=== PATIENT | male | born 1965 | race Caucasian/White ===

== ENCOUNTER 2018-03-21 09:09 | Day surgery (SDC) | payer OTHER ==
[~2018-03-21] VITALS: Ht 175.3 cm; Wt 99.3 kg
[~2018-03-21 09:09] MED LIST: ASPI325 PO; FISH OIL 1,001000 MG PO; LEVSOD100 PO; Lotrel 10-40 M1 EACH PO; Multivitamin1 EAC2 PO
== END 2018-03-21 22:37 | disposition home or self-care (01) ==
LOC: ORSCMMR 09:09 → ORD 10:30 → ORSCMMR 10:30
PROVIDERS: Internal Medicine Gastroenterology
PROC: 0DJD8ZZ Inspection of Lower Intestinal Tract, Via Natural or Artificial Opening Endoscopic (ICD-10-PCS; principal; 2018-03-21 10:30)
DX: Z12.11 Encounter for screening for malignant neoplasm of colon (principal); I10 Essential (primary) hypertension; E03.9 Hypothyroidism, unspecified; Z79.82 Long term (current) use of aspirin; Z79.899 Other long term (current) drug therapy
CPT/HCPCS: J7120

== ENCOUNTER 2020-04-17 05:53 | Day surgery (SDC) | payer OTHER ==
[~2020-04-17] VITALS: Ht 172.7 cm; Wt 99.0 kg
[~2020-04-17 05:53] MED LIST changes: +HYDCHL25 PO; +METO50ER PO; +TAMS.4ER PO
--- NOTE | 2020-04-17 08:20 | NUR ---
PT RETURNED TO RECOVERY ROOM IN [facility]. RIGHT RADIAL TR BAND WITH WRIST BOARD SOFT NON-TENDER WITH NO HEMATOMA, NO BLEEDING. PT DENIES CHEST PAIN. CALL LIGHT IN REACH.
--- NOTE | 2020-04-17 10:36 | NUR ---
8 CC REMOVED OVER 10 MIN FROM NOW DEFLATED RIGHT TR BAND; NO HEMATOMA, SOFT NON-TENDER AND NO PULSATILE BLEEDING. DISCHBANNER INSTRCTIONS REVIEWED ALL QUESTIONS ANSWERED.
--- NOTE | 2020-04-17 10:44 | NUR ---
NO CHANGES TO DEFLATED RIGHT TR BAND SITE.
--- NOTE | 2020-04-17 11:27 | NUR ---
DEFLATED RIGHT TR BAND REMOVED AND POLYMEM PLACED OVER SITE. RIGHT WRIST BOARD IN PLACE. 20 G IV DISCONTINUED FROM LEFT AC WITH INTACT CANNULA.
== END 2020-04-17 11:35 | disposition home or self-care (01) ==
LOC: MHTC 05:53
PROC: B201YZZ Plain Radiography of Multiple Coronary Arteries using Other Contrast (ICD-10-PCS; principal; 2020-04-17)
PROC: 4A023N7 Measurement of Cardiac Sampling and Pressure, Left Heart, Percutaneous Approach (ICD-10-PCS; principal; 2020-04-17)
DX: I25.10 Atherosclerotic heart disease of native coronary artery without angina pectoris (principal); I10 Essential (primary) hypertension; E03.9 Hypothyroidism, unspecified; Z79.82 Long term (current) use of aspirin; Z79.899 Other long term (current) drug therapy
CPT/HCPCS: 76937; 93458; 99152; 99153; C1769; C1894; J1644; J2250; J3010; J7030; J7050; Q9967

== ENCOUNTER 2020-11-24 11:48 | Emergency (ER) | payer OTHER ==
[~2020-11-24] VITALS: Ht 172.7 cm; Wt 77.2 kg
[2020-11-24 12:40] LABS: BASOPHILS ABSOLUTE AUTO 0.02 K/mm3 (0.00-0.23); BASOPHILS PERCENT AUTO 0 % (0-2); EOSINOPHILS ABSOLUTE AUTO 0.17 K/mm3 (0.00-0.68); EOSINOPHILS PERCENT AUTO 4 % (0-6); Hematocrit 44.4 % (37.0-53.0); Hemoglobin 14.8 g/dL (13.5-17.5); IMMATURE GRAN ABSOLUTE AUTO 0.01 K/mm3 (0.00-0.10); IMMATURE GRAN PERCENT AUTO 0 % (0-1); LYMPHOCYTES ABSOLUTE AUTO 0.36 K/mm3 (0.84-5.20); LYMPHOCYTES PERCENT AUTO 8 % (21-46); MONOCYTES ABSOLUTE AUTO 0.44 K/mm3 (0.16-1.47); MONOCYTES PERCENT AUTO 10 % (4-13); Mean Corpuscular HGB 29.5 pg (26.0-34.0); Mean Corpuscular HGB Conc 33.3 g/dL (31.5-36.5); Mean Corpuscular Volume 88 fL (80-100); NEUTROPHILS PERCENT AUTO 78 % (41-73); Platelet Count 169 K/mm3 (150-400); RDW Coefficient Variation 12.4 % (11.7-14.2); RDW Standard Deviation 40.7 fL (35.1-46.3); Red Blood Cell Count 5.02 M/mm3 (4.30-5.90)
[2020-11-24 12:43] LABS: Alanine Aminotransfer (ALT/SGP 32 U/L (12-78); Albumin, Blood 3.8 g/dL (3.4-5.0); Albumin/Globulin Ratio 1.4 (0.8-1.8); Alk Phos 48 U/L (50-136); Anion Gap 3 mmol/L (6-16); Aspartate Aminotrans (AST/SGOT 14 U/L (12-37); Bilirubin, Total 1.6 mg/dL (0.1-1.0); Blood Urea Nitrogen 23 mg/dL (8-24); Bun/Creatinine Ratio 17.6 (12.0-20.0); CO2, Blood 30 mmol/L (21-32); Calcium, Blood 8.5 mg/dL (8.5-10.1); Chloride, Blood 108 mmol/L (98-108); Creatinine, Blood 1.31 mg/dL (0.60-1.20); Globulin, Blood 2.7 g/dL (2.2-4.0); Glomerular Filtration Rate >60 (60-); Glucose, Blood 94 mg/dL (70-99); Potassium, Blood 3.8 mmol/L (3.5-5.5); Sodium, Blood 141 mmol/L (136-145); Total Protein, Blood 6.5 g/dL (6.4-8.2); Troponin I <0.015 ng/mL (0.000-0.040)
== END 2020-11-24 15:07 | disposition home or self-care (01) ==
LOC: ER 11:48
PROVIDERS: Emergency Medicine
DX: R55 Syncope and collapse (principal); I10 Essential (primary) hypertension; E03.9 Hypothyroidism, unspecified; Z79.82 Long term (current) use of aspirin; Z79.899 Other long term (current) drug therapy
CPT/HCPCS: 71045; 80053; 84484; 85025; 93005; 93010; 99284-25; J7030

== ENCOUNTER 2022-09-03 08:27 | Day surgery (SDC) | payer OTHER ==
[~2022-09-03] VITALS: Ht 172.7 cm; Wt 85.5 kg
--- NOTE | 2022-09-03 11:02 | NUR ---
09/03/22 1102 Kanika Angel PT PLACED ON 15L O2 VIA FT UPON ARRIVING PACU. SPO2 99% ON 15L. TRIAL DOWN TO 10L.
== END 2022-09-03 12:12 | disposition home or self-care (01) ==
LOC: ORSCSDS 08:27
PROVIDERS: Surgery
PROC: 0YU50JZ Supplement Right Inguinal Region with Synthetic Substitute, Open Approach (ICD-10-PCS; principal; 2022-09-03 10:00)
DX: K40.90 Unilateral inguinal hernia, without obstruction or gangrene, not specified as recurrent (principal); I10 Essential (primary) hypertension; E03.9 Hypothyroidism, unspecified; G47.33 Obstructive sleep apnea (adult) (pediatric); E05.90 Thyrotoxicosis, unspecified without thyrotoxic crisis or storm; Z79.82 Long term (current) use of aspirin; Z79.899 Other long term (current) drug therapy
CPT/HCPCS: C1781; J0690; J2250; J2704; J2795; J3010; J7120

== ENCOUNTER → 2023-10-17 | Outpatient (CLI) | payer OTHER ==
[2023-10-17 16:59] LABS: PSA, %Free 9.9 %; PSA, Free 0.365 ng/mL
[2023-10-17 17:27] LABS: Alanine Aminotransfer (ALT/SGP 50 U/L (12-78); Albumin, Blood 4.2 g/dL (3.4-5.0); Albumin/Globulin Ratio 1.4 (0.8-1.8); Alk Phos 47 U/L (50-136); Anion Gap 7 mmol/L (3-11); Aspartate Aminotrans (AST/SGOT 25 U/L (12-37); Bilirubin, Total 1.2 mg/dL (0.1-1.0); Blood Urea Nitrogen 16 mg/dL (8-24); CO2, Blood 28 mmol/L (21-32); Calcium, Blood 9.4 mg/dL (8.5-10.1); Chloride, Blood 111 mmol/L (98-108); Creatinine, Blood 1.07 mg/dL (0.60-1.20); Glomerular Filtration Rate 80 (60-); Glucose, Blood 96 mg/dL (70-99); Potassium, Blood 4.2 mmol/L (3.5-5.5); Sodium, Blood 142 mmol/L (136-145); Total Protein, Blood 7.2 g/dL (6.4-8.2)
== END | disposition home or self-care (01) ==
LOC: LAB 14:52 → LAB SHORT 14:52
PROVIDERS: Family Medicine
DX: E03.4 Atrophy of thyroid (acquired) (principal); E55.9 Vitamin D deficiency, unspecified; E87.8 Other disorders of electrolyte and fluid balance, not elsewhere classified; R97.8 Other abnormal tumor markers
CPT/HCPCS: 80053; 82306; 84153; 84154; 84443

== ENCOUNTER → 2024-08-10 | Outpatient (CLI) | payer OTHER ==
[2024-08-10 19:45] LABS: CHOL/HDL RATIO 2.9; Cholesterol 112 mg/dL (50-200); HDL Cholesterol 38 mg/dL (>39); LDL/HDL RATIO 1.3; Low Density Lipoprotein Chol 50 mg/dL (0-110); Triglycerides 121 mg/dL (30-160); Very Low Density Lipoprot Chol 24 mg/dL (6-32)
[2024-08-13 15:34] LABS: HIV 1,2 COMBO ANTIGEN/ANTIBODY Negative (Negative)
== END | disposition home or self-care (01) ==
LOC: LAB 17:42 → LAB SHORT 17:42
PROVIDERS: Family Medicine
DX: Z11.4 Encounter for screening for human immunodeficiency virus [HIV] (principal); E03.4 Atrophy of thyroid (acquired); E78.2 Mixed hyperlipidemia; E55.9 Vitamin D deficiency, unspecified
CPT/HCPCS: 80061; 82306; 84443; 87389